=== PATIENT | female | born 1985 | race Two or more races ===

== ENCOUNTER 2025-04-15 19:24 | Emergency (ER) | payer MEDICAID, SELFPAY ==
[2025-04-15 19:26] VITALS: BMI 33.9
[2025-04-15 19:34] VITALS: BP 149/83; PULSE 97; RESP 19; TEMP 36.7; O2SAT 97
--- NOTE | 2025-04-15 19:52 | PD.EDANKLE ---
Lower Extremity Injury RME/HPI General Chief Complaint: Ankle/Foot Injury Stated Complaint: RIGHT GREAT TOE SWELLING Time Seen by Provider: 04/15/25 19:27 Arrival date/time: 04/15/25 19:24 Case of 39-year-old female with no medical history came in in the emergency room due to toenail injury history of present illness started last Thursday when the patient accidentally stabbed his right great toenail on a hard wood sustained a 75% nail avulsion patient denies any other injury no bleeding due to pain and swelling this patient decided to sought consult here in the emergency room Limitations: no limitations Related Data Previous Rx's ?Medication ?Instructions ?Recorded cephalexin 500 mg capsule 500 mg PO QID #40 caps 04/15/25 ibuprofen 800 mg tablet 800 mg PO Q8H PRN pain #20 tabs 04/15/25 mupirocin 2 % topical ointment 1 applic topical BID #22 grams 04/15/25 (Centany) Allergies Allergy/AdvReac Type Severity Reaction Status Date / Time No Known Allergies Allergy Verified 04/15/25 19:25 Review of Systems Review of Systems Systems Reviewed: All systems reviewed, normal except as documented Constitutional Constitutional: Reports system reviewed and no additional complaints, except as documented and Reports as per HPI ENT Ears, Nose, Mouth, and Throat: Denies neck pain Cardiovascular Cardiovascular: Reports system reviewed and no additional complaints, except as documented and Reports as per HPI Respiratory Respiratory: Reports system reviewed and no additional complaints, except as documented and Reports as per HPI Gastrointestinal Gastrointestinal: Reports system reviewed and no additional complaints, except as documented and Reports as per HPI Musculoskeletal Musculoskeletal: Reports system reviewed and no additional complaints, except as documented, Reports as per HPI, Denies abnormal gait, Denies arthralgias, Denies atrophy, Denies back pain, Denies deformity, Denies joint swelling, Denies limited range of motion, Denies loss of height, Denies muscle cramps, Denies muscle weakness, Denies myalgias, Denies neck pain, Denies numbness, Denies radiating pain into limb and Denies stiffness Neurologic Neurologic: Reports system reviewed and no additional complaints, except as documented, Reports as per HPI, Denies abnormal gait and Denies numbness Past Medical History Social History SMOKING STATUS: Never smoker ED Exam General Limitations: Present no limitations General appearance: Present alert, in no apparent distress and other (Patient is awake alert oriented not in distress nontoxic looking well-hydrated well-nourished) Head Head exam: Present atraumatic, normocephalic and normal inspection Eye Eye exam: Present normal appearance, PERRL and EOMI ENT ENT exam: Present normal exam, normal oropharynx and mucous membranes moist Neck Neck exam: Present normal inspection, full ROM and trachea midline; Absent tenderness, meningismus or lymphadenopathy Chest Chest inspection: Present normal inspection and symmetric chest wall rise; Absent tenderness Respiratory Respiratory exam: Present normal lung sounds bilaterally; Absent respiratory distress, wheezes, stridor, accessory muscle use or prolonged expiratory phase Cardiovascular Cardiovascular exam: Present regular rate, normal rhythm and normal heart sounds; Absent bradycardia, tachycardia, irregular rhythm, systolic murmur or diastolic murmur Abdominal Exam Abdominal exam: Present soft and normal bowel sounds; Absent distention, tenderness, guarding, rebound, rigidity, diminished bowel sounds, hyperactive bowel sounds, hypoactive bowel sounds or organomegaly Extremities Exam Extremities exam: Present normal inspection and full ROM Expanded Lower Extremity Exam Foot/toe exam: Present tenderness, swelling and nail avulsion (75% nail avulsion no bleeding no foreign body no bone or tendon injury nailbed is intact ROM is intact neurovascular intact); Absent abrasion, laceration, ecchymosis, deformity, crepitus, dislocation, erythema, amputation, puncture wound, foreign body, calcaneal tenderness or tenderness at base of 5th metatarsal Back Exam Back exam: Present normal inspection and full ROM Neurological Exam Neurological exam: Present alert, oriented X3, CN II-XII intact, normal gait and reflexes normal; Absent motor sensory deficit Psychiatric Psychiatric exam: Present normal affect and normal mood Skin Skin exam: Present warm, dry, intact and normal color Course Quality Measures none Orders Category Date Time Status Bacitracin Oint pkt Med 04/15/25 19:48 Discontinued 1 gm TOP X1 ONE HYDROcodone*/APAP 5/325 [[place] 5/325] Med 04/15/25 19:48 Discontinued 1 tab PO X1 ONE cephALEXin [Keflex] Med 04/15/25 19:48 Discontinued 500 mg PO X1 ONE Vital Signs Vital signs: Vital Signs Temperature 98.1 F 04/15/25 19:34 Pulse Rate 97 04/15/25 19:34 Respiratory Rate 19 04/15/25 19:34 Blood Pressure 149/83 H 04/15/25 19:34 Pulse Oximetry (%) 97 04/15/25 19:34 Oxygen Delivery Method Room Air 04/15/25 19:34 Oxygen saturation is 97% in room air PROCEDURES: Procedure Comment Removal of right great toenail success digital nerve block noted on the right great toe slowly remove the right great toenail to the nailbed by the using of the mosquito and scissor nailbed is intact no bleeding noted patient tolerated well the procedure procedure done by [facility] protocol Nerve Block Nerve Block 1: Time out performed: Yes Local Anesthetic: lidocaine 1% Amount of anesthesia used (mL): 5 Side: right Nerve Blocks: digital Intraoral Nerve Block: other (Digital block right great toe) Procedure Successful: Yes Patient Tolerated Procedure: well Complications: none Extremity Injury, Lower MDM Narrative MDM Narrative:: Case of 39-year-old female with no medical history came in in the emergency room due to toenail injury history of present illness started last Thursday when the patient accidentally stabbed his right great toenail on a hard wood sustained a 75% nail avulsion patient denies any other injury no bleeding due to pain and swelling this patient decided to sought consult here in the emergency room physical examination patient is awake alert oriented not in distress nontoxic looking well-hydrated well-nourished patient noted to have 75% nail avulsion on the right great toe nail with tenderness and swelling on the right great toe no bleeding no discharge ROM intact neurovascular intact no crepitation no deformity thus x-ray was not performed completion of removal of the right great toe was performed patient tolerated well the procedure no complication noted procedure done by [facility] protocol and via sterile technique patient will follow-up with PCP in 2 days for reevaluation and for any worsening symptoms or any emergent concern return precaution in the ER is advised Patient was discharged with comfortable condition walking with stable gait. Patient verbalized no further complains explained diagnosis and answered patient question. Patient is comfortable with the proposed management plan including the need to follow up with his/her primary care physician and any specialist if applicable Discussed patient for any urgent condition or worsening sx, He/She needed to go to emergency room immediately or call 911. Patient acknowledge the responsibility to follow up as instructed and to monitor her/his symptoms. For any persistence of the symptoms for more than 3-5 days return precaution advised. Discussed the result of the test and was given printed discharge instruction Patient data External records reviewed:: [facility] previous records Clinical information provided by:: patient Social determinants that could affect healthcare access:: none Patient has the following chronic illnesses:: None How is presenting disease/condition affected by chronic disease/condition?: no chronic disease Evaluation data The following diagnostics were reviewed and interpreted by me:: other (specify) (None) Lab and/or radiology exams considered but not ordered:: None Interpretation Summary: None Medications / Prescriptions Medications or Prescriptions considered but not ordered:: Given Medication administrations:: Medication Administration History Discontinued Medications Hydrocodone Bitart/Acetaminophen (Hydrocodone/[place] 5/325 Tablet) 1 tab PO X1 ONE Stop: 04/15/25 19:49 Bacitracin (Bacitracin Oint 1 Gm Packet) 1 gm TOP X1 ONE Stop: 04/15/25 19:49 Cephalexin HCl (Cephalexin 250 Mg Capsule) 500 mg PO X1 ONE Stop: 04/15/25 19:49 Given Consultations Consultation(s) initiated? (list below): No Diagnosis Extremity Injury, Lower Differential Diagnosis: other (Nail avulsion) Most likely diagnosis given after review of the tests above:: Toenail avulsion Admission Indicated Admission indicated?: not indicated Explain why admission is indicated or not indicated:: Not indicated Admission Request Was there a request for admission?: No Admission Attestation Admission request attestation: Not indicated Disposition Plan Disposition Plan: Discharge Discharge Attestation Discharge Attestation: The patient and all family members were given an opportunity to ask questions and understood the discharge instructions. Discharge instructions specifically effects, indications for sooner follow up or return to the emergency department, and the expected course of current diagnosis. Patient condition: Stable Discharge Plan Plan Patient Disposition: HOME (Self Care) Patient condition on transfer: Stable Prescriptions/Referrals Prescriptions/Med Rec: New cephalexin 500 mg capsule 500 mg PO QID Qty: 40 0RF ibuprofen 800 mg tablet 800 mg PO Q8H PRN (Reason: pain) Qty: 20 0RF mupirocin [Centany] 2 % ointment 1 applic topical BID Qty: 22 0RF Problem List Clinical Impression: Avulsion of toenail Patient/Caregiver Discharge Instructions Education Materials: ED Detached Fingernail or Toenail Additional Instructions: Follow-up with your primary care physician in 2 days for reevaluation and wound check worsening symptoms or any emergent concerns such as redness swelling discharge from the wound pain fever chills return to the emergency room immediately or call 911 take your medication as directed finish the course of antibiotic keep the area clean and dry Print Language: Greenlandic Stand Alone Forms: Carolann Award Info., Patient Portal Info Letter PA/PROJECT MANAGER/DESIGN MANAGER Supervising Physician PA/PROJECT MANAGER/DESIGN MANAGER Supervising Physician: Dr. Naseem Gallardo
[2025-04-15] MEDS: HYDROcodone/APAP 5/325 TABLET 1 TAB PO (20:03)
== END 2025-04-15 20:14 | disposition home or self-care (01) ==
PROVIDERS: Emergency Provider Emergency Medicine; PCP Physician Assistant
DX: S91.201A Unspecified open wound of right great toe with damage to nail, initial encounter (principal); W45.8XXA Other foreign body or object entering through skin, initial encounter
CPT/HCPCS: 11750; 99281; A9270